=== PATIENT | male | born 1995 | race Caucasian/White ===

== ENCOUNTER 2016-10-16 16:30 | Emergency (ER) | payer OTHER ==
[2016-10-16 16:41] VITALS: BP 154/93
[2016-10-16] MEDS ORDERED: HYDROcod/ACETAM 5/325 MG TABLET PO STA (16:55)
--- NOTE | 2016-10-16 16:58 | ED Physician Documentation ---
PD HPI LOWER EXT INJURY - Stated complaint Stated Complaint: LT FT PAIN - Chief complaint Chief Complaint: Ext Problem - History obtained from History obtained from: Patient - History of Present Illness PD HPI LOW EXT INJURY LOCATION: Other (Hurt the lateral side of the left foot when he slipped off of a paddle board yesterday now cannot walk or bear weight. No other injuries. He is active duty in the [employer].) Review of Systems Constitutional: reports: Reviewed and negative Cardiac: reports: Reviewed and negative Respiratory: reports: Reviewed and negative PD PAST MEDICAL HISTORY - Present Medications Home Medications: Ambulatory Orders Medication Instructions Recorded Confirmed HYDROcod/ACETAM 5/325 [[place] 5/325] 1 - 2 ea PO Q6H PRN #10 tablet 10/16/16 - Allergies Allergies/Adverse Reactions: Allergies Allergy/AdvReac Type Severity Reaction Status Date / Time No Known Drug Allergies Allergy Verified 10/16/16 16:41 PD ED PE NORMAL - Vitals Vital signs reviewed: Yes - General General: Alert and oriented X 3, No acute distress - Extremities Extremities: Other (Left foot is tender over the mid and distal metatarsal, fifth. There is no tenderness to the proximal fifth metatarsal or ankle. No tenderness of the top of the foot or the medial foot. Good range of motion. Normal pedal pulses and sensation.) - Neuro Neuro: Alert and oriented X 3, Normal speech - Psych Psych: Normal mood, Normal affect Results - Vitals Vitals: Vital Signs - 24 hr 10/16/16 16:38 Temperature 36.9 C Heart Rate 90 Respiratory 16 Rate Blood Pressure 154/93 H O2 Saturation 96 Oxygen O2 Source Room air Departure - Departure Disposition: 01 Home, Self Care Clinical Impression: Sprain of left foot Qualifiers: Encounter type: initial encounter Qualified Code(s): S93.602A - Unspecified sprain of left foot, initial encounter Condition: Good Record reviewed to determine appropriate education?: Yes Instructions: ED Sprain Foot Prescriptions: HYDROcod/ACETAM 5/325 [[place] 5/325] 1 - 2 ea PO Q6H PRN #10 tablet PRN Reason: Pain Comments: [place] You may walk and bear weight on the left foot as tolerated because your x-rays normal. Do not drink or drive while taking narcotic pain medication. Note that many narcotic pain relievers also contain Tylenol/acetaminophen. Please ensure that your total dose of acetaminophen from all sources does not exceed 3 g (3000 mg) per day. You may get constipated while on this medication. Take a stool softener such as Colace twice a day while you are on it. Also add an enjn-npr-gmutfki laxative such as senna or MiraLAX on any day that you do not have a bowel movement. If you received a narcotic pain medication or sedative while in the emergency department, do not drive for the next 24 hours. Your blood pressure was elevated today on check into the emergency department. This does not mean that you have hypertension, it is a common phenomenon to come to the emergency department and have elevated blood pressure. I recommend that she see your primary care physician within the week to have it rechecked when you are feeling better.
--- NOTE | 2016-10-16 17:01 | XRAY Preliminary Report ---
Exam: XR Foot 3 View LT IMPRESSION: Normal foot radiography. [facility] SITE ID: [id number]
--- NOTE | 2016-10-16 17:03 | XRAY Report ---
EXAM: LEFT FOOT RADIOGRAPHY EXAM DATE: 10/16/2016 04:47 PM. CLINICAL HISTORY: Pain after slip and fall. COMPARISON: None. TECHNIQUE: 3 views. FINDINGS: Bones: Normal. No fractures or bone lesions. Joints: Normal. No subluxations. Soft Tissues: Normal. No soft tissue swelling. IMPRESSION: Normal foot radiography. [facility] Referring Provider Line: [phone] SITE ID: [id number]
[2016-10-16] MEDS ORDERED: HYDROcod/ACETAM 5/325 MG TABLET ONE (17:08)
== END 2016-10-16 17:10 | disposition home or self-care (01) ==
LOC: ED 16:30
DX: S93.602A Unspecified sprain of left foot, initial encounter (principal); W01.0XXA Fall on same level from slipping, tripping and stumbling without subsequent striking against object, initial encounter; Y92.89 Other specified places as the place of occurrence of the external cause; R03.0 Elevated blood-pressure reading, without diagnosis of hypertension
CPT/HCPCS: 73630; 99282; 99283; A9270

== ENCOUNTER 2018-12-12 21:57 | Emergency (ER) | payer OTHER ==
--- NOTE | 2018-12-12 22:38 | ED Physician Documentation ---
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 She was concerned about him and the MP showed up to his house after he arrived there and with the insistence of his command he was asked to come to the emergency department for evaluation. The patient denies any suicidal or homicidal ideation he does state that the argument they were having was related to some infidelity that happened while he was out on deployment. He does state that they have a polyamorous relationship and that he feels that his relationship with his is still intact and he feels he will build to work through this. He states that this is happened to him previously where his has called the [employer] when he was not talking to her on deployment. The patient states he has no prior history of mental illness and he denies any current illness. Review of Systems Constitutional: denies: Fever Eyes: denies: Decreased vision Ears: reports: Tinnitus/ringing. denies: Ear pain Nose: reports: Congestion. denies: Rhinorrhea / runny nose Throat: denies: Sore throat Cardiac: denies: Chest pain / pressure, Palpitations Respiratory: denies: Dyspnea, Cough GI: denies: Abdominal Pain, Abdominal Swelling : denies: Dysuria, Frequency Skin: denies: Rash Musculoskeletal: denies: Neck pain, Back pain Neurologic: denies: Generalized weakness, Focal weakness, Numbness Psychiatric: denies: Depressed, Suicidal, Homicidal, Hallucinations, Delusions, Anxiety, Insomnia PD PAST MEDICAL HISTORY - Past Surgical History Past Surgical History: No - Present Medications Home Medications: Ambulatory Orders Medication Instructions Recorded Confirmed HYDROcod/ACETAM 5/325 [[place] 5/325] 1 - 2 ea PO Q6H PRN #10 tablet 10/16/16 Azithromycin [Zithromax] 250 mg PO DAILY #6 tablet 12/12/18 - Allergies Allergies/Adverse Reactions: Allergies Allergy/AdvReac Type Severity Reaction Status Date / Time No Known Drug Allergies Allergy Verified 12/12/18 22:00 - Social History Does the pt smoke?: Yes Smoking Status: Current every day smoker Does the pt drink ETOH?: No Does the pt have substance abuse?: No - Immunizations Immunizations are current?: Yes PD ED PE NORMAL - Vitals Vital signs reviewed: Yes (hypertensive ) - General General: Alert and oriented X 3, No acute distress, Well developed/nourished - HEENT HEENT: Atraumatic, PERRL, EOMI, Other (mild erythema to the TM bilat worse on the left. ) - Neck Neck: Supple, no meningeal sign, No bony TTP - Cardiac Cardiac: RRR, No murmur - Respiratory Respiratory: No respiratory distress, Clear bilaterally - Abdomen Abdomen: Soft, Non tender - Back Back: No CVA TTP, No spinal TTP - Derm Derm: Normal color, Warm and dry, No rash - Extremities Extremities: No deformity, No tenderness to palpate, Normal ROM s pain, No edema, No calf tenderness / cord - Neuro Neuro: Alert and oriented X 3, mass spectroscopist 2-12 intact, No motor deficit, No sensory deficit, Normal speech Eye Opening: Spontaneous Motor: Obeys Commands Verbal: Oriented GCS Score: 15 - Psych Psych: Normal mood, Normal affect Results - Vitals Vitals: Vital Signs - 24 hr 12/12/18 12/12/18 22:00 22:47 Temperature 37.0 C Heart Rate 63 77 Respiratory 16 17 Rate Blood Pressure 146/109 H 138/93 H O2 Saturation 99 100 Oxygen O2 Source Room air PD MEDICAL DECISION MAKING - ED course Complexity details: re-evaluated patient, considered differential, d/w patient ED course: 23 y/o male evaluated by MP's has been asked by his command to be evaluated in the ED. I find nothing in the patients testimony to require evaluation by the protective services social worker or the DCR. I feel he is safe for discharge to home and the patient is thankful for this. He does have an incidental OM and he is given wait and see instructions. Departure - Departure Disposition: 01 Home, Self Care Clinical Impression: Domestic problems Otitis media Qualifiers: Otitis media type: suppurative Chronicity: acute Laterality: left Recurrence: non-recurrent Spontaneous tympanic membrane rupture: without spontaneous rupture Qualified Code(s): H66.002 - Acute suppurative otitis media without spontaneous rupture of ear drum, left ear Condition: Stable Instructions: ED Ear Infec Wait See Abx Tx Ch Follow-Up: [facility] [Provider Group] Prescriptions: Azithromycin [Zithromax] 250 mg PO DAILY #6 tablet Discharge Date/Time: 12/12/18 22:48
[2018-12-12 22:47] VITALS: BP 138/93
== END 2018-12-12 22:48 | disposition home or self-care (01) ==
LOC: ED 21:57
DX: Z63.0 Problems in relationship with spouse or partner (principal); H66.002 Acute suppurative otitis media without spontaneous rupture of ear drum, left ear; F17.200 Nicotine dependence, unspecified, uncomplicated
CPT/HCPCS: 99282; 99283

== ENCOUNTER 2019-01-11 15:29 | Inpatient (IN) | payer OTHER ==
--- NOTE | 2019-01-11 15:40 | ED Physician Documentation ---
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 Today he tried to kill himself, a variety of medications mostly codeine, acetaminophen and alcohol. Several shallow scratches on the left forearm that are self- inflicted. He is on Lexapro for about a week.) Review of Systems Ten Systems: 10 systems reviewed and negative Constitutional: reports: Reviewed and negative Cardiac: reports: Reviewed and negative Respiratory: reports: Reviewed and negative PD PAST MEDICAL HISTORY - Past Surgical History Past Surgical History: No - Present Medications Home Medications: Ambulatory Orders Medication Instructions Recorded Confirmed HYDROcod/ACETAM 5/325 [[place] 5/325] 1 - 2 ea PO Q6H PRN #10 tablet 10/16/16 Azithromycin [Zithromax] 250 mg PO DAILY #6 tablet 12/12/18 - Allergies Allergies/Adverse Reactions: Allergies Allergy/AdvReac Type Severity Reaction Status Date / Time No Known Drug Allergies Allergy Verified 01/11/19 15:38 - Social History Does the pt smoke?: Yes Smoking Status: Current every day smoker Does the pt drink ETOH?: No Does the pt have substance abuse?: No - Immunizations Immunizations are current?: Yes PD ED PE NORMAL - Vitals Vital signs reviewed: Yes - General General: Alert and oriented X 3, Other (Slightly intoxicated but cogent and coherent and cooperative) - HEENT HEENT: PERRL, EOMI - Neck Neck: Supple, no meningeal sign, No bony TTP - Cardiac Cardiac: RRR, No murmur - Respiratory Respiratory: No respiratory distress, Clear bilaterally - Abdomen Abdomen: Non tender - Back Back: No CVA TTP - Derm Derm: Normal color, Warm and dry - Extremities Extremities: Other (Several small scratches on the left forearm) - Neuro Neuro: Alert and oriented X 3, Normal speech Results - Vitals Vitals: Vital Signs - 24 hr 01/11/19 01/11/19 01/11/19 15:32 17:17 17:34 Temperature 36.7 C Heart Rate 86 90 89 Respiratory 18 14 18 Rate Blood Pressure 154/106 H O2 Saturation 99 95 95 Oxygen O2 Source Room air - EKG (time done) 1550 Rate: Rate (enter#) (96) Rhythm: NSR [place]: Normal Intervals: Normal ID QRS: Normal Ischemia: Normal ST segments Computer interpretation: Agree with computer 1807 Rate: Rate (enter#) (100) Rhythm: NSR [place]: Normal Intervals: Normal ID. No: Prolonged QT QRS: Normal Computer interpretation: Agree with computer - Labs Labs: Laboratory Tests 01/11/19 01/11/19 01/11/19 15:48 15:48 15:48 WBC 6.2 RBC 5.54 Hgb 17.5 Hct 49.5 MCV 89.4 MCH 31.6 H MCHC 35.4 RDW 11.8 L Plt Count 276 MPV 10.0 Neut # (Auto) 3.9 Lymph # (Auto) 1.6 [place] # (Auto) 0.6 Eos # (Auto) 0.0 Baso # (Auto) 0.0 Absolute Nucleated RBC 0.00 Nucleated RBC % 0.0 PT 12.6 INR 1.1 Sodium 139 Potassium 3.7 Chloride 101 Carbon Dioxide 23 Anion Gap 15.0 H BUN 10 Creatinine 0.9 Estimated GFR (MDRD) 105 Glucose 110 H Calcium 9.1 Total Bilirubin 1.0 AST 32 ALT 52 Alkaline Phosphatase 83 Total Protein 8.2 Albumin 4.8 Globulin 3.4 Albumin/Globulin Ratio 1.4 Lipase 24 TSH Urine Color Urine Clarity Urine pH Ur Specific [place] Urine Protein Urine Glucose (UA) Urine Ketones Urine Occult Blood Urine Nitrite Urine Bilirubin Urine Urobilinogen Ur Leukocyte Esterase Ur Microscopic Review Urine Culture Comments Salicylates < 6.0 Urine Opiates Screen Ur Oxycodone Screen Urine Methadone Screen Ur Propoxyphene Screen Acetaminophen 333 H* Ur Barbiturates Screen Ur Tricyclics Screen Ur Phencyclidine Scrn Ur Amphetamine Screen U Methamphetamines Scrn U Benzodiazepines Scrn Urine Cocaine Screen U Cannabinoids Screen Ethyl Alcohol 153.3 01/11/19 01/11/19 01/11/19 15:48 16:20 17:59 WBC RBC Hgb Hct MCV MCH MCHC RDW Plt Count MPV Neut # (Auto) Lymph # (Auto) [place] # (Auto) Eos # (Auto) Baso # (Auto) Absolute Nucleated RBC Nucleated RBC % PT INR Sodium Potassium Chloride Carbon Dioxide Anion Gap BUN Creatinine Estimated GFR (MDRD) Glucose Calcium Total Bilirubin AST ALT Alkaline Phosphatase Total Protein Albumin Globulin Albumin/Globulin Ratio Lipase TSH 0.93 Urine Color YELLOW Urine Clarity CLEAR Urine pH 6.0 Ur Specific [place] 1.020 Urine Protein NEGATIVE Urine Glucose (UA) NEGATIVE Urine Ketones NEGATIVE Urine Occult Blood NEGATIVE Urine Nitrite NEGATIVE Urine Bilirubin NEGATIVE Urine Urobilinogen 0.2 (NORMAL) Ur Leukocyte Esterase NEGATIVE Ur Microscopic Review NOT INDICATED Urine Culture Comments NOT INDICATED Salicylates Urine Opiates Screen POSITIVE H Ur Oxycodone Screen NEGATIVE Urine Methadone Screen NEGATIVE Ur Propoxyphene Screen NEGATIVE Acetaminophen 365 H* Ur Barbiturates Screen NEGATIVE Ur Tricyclics Screen NEGATIVE Ur Phencyclidine Scrn NEGATIVE Ur Amphetamine Screen NEGATIVE U Methamphetamines Scrn NEGATIVE U Benzodiazepines Scrn NEGATIVE Urine Cocaine Screen NEGATIVE U Cannabinoids Screen NEGATIVE Ethyl Alcohol PD MEDICAL DECISION MAKING - ED course ED course: 23-year-old gentleman presents with multidrug overdose. Found to have a toxic Tylenol level. The 2 are level was quite high and poison control recommended starting N-acetylcysteine at that juncture which was ordered. The 4-hour level was also above the toxic threshold so will be admitted for the full treatment. Book with Dr. Ramírez for admission at 7:35 PM. - Consults Consults: Discussed case with (Dr Arteaga, his flight surgeon, he is available at [phone]) Departure - Departure Disposition: ED Place in Observation Clinical Impression: Suicidal ideation Alcoholic intoxication Qualifiers: Complication of substance-induced condition: uncomplicated Qualified Code(s): F10.920 - Alcohol use, unspecified with intoxication, uncomplicated Tylenol overdose Qualifiers: Encounter type: initial encounter Injury intent: intentional self-harm Qualified Code(s): T39.1X2A - Poisoning by 4-Aminophenol derivatives, intentional self-harm, initial encounter Condition: Serious
[2019-01-11 15:54] LABS: BASOPHILS % (AUTO) 0.6 %; EOSINOPHILS % (AUTO) 0.5 %; HGB - HEMOGLOBIN 17.5 g/dL (14.0-18.0); LYMPHOCYTES # (AUTO) 1.6 10^3/uL (1.5-3.5); LYMPHOCYTES % (AUTO) 25.6 %; MEAN CORPUSCULAR HEMOGLOBIN 31.6 pg (27.0-31.0); MEAN CORPUSCULAR HGB CONC 35.4 g/dL (32.0-36.0); MEAN CORPUSCULAR VOLUME 89.4 fL (80.0-94.0); MONOCYTES # (AUTO) 0.6 10^3/uL (0.0-1.0); MONOCYTES % (AUTO) 9.6 %; NEUTROPHILS # (AUTO) 3.9 10^3/uL (1.5-6.6); NEUTROPHILS % (AUTO) 63.4 %; PLT - PLATELET COUNT 276 10^3/uL (130-450); RED BLOOD COUNT 5.54 10^6/uL (4.70-6.10); RED CELL DISTRIBUTION WIDTH 11.8 % (12.0-15.0); WHITE BLOOD COUNT 6.2 x10^3/uL (4.8-10.8)
[2019-01-11 16:09] LABS: ALBUMIN 4.8 g/dL (3.2-5.5); ALBUMIN/GLOBULIN RATIO 1.4 (1.0-2.2); ALKALINE PHOSPHATASE 83 IU/L (42-121); ALT ALANINE AMINOTRANSFERASE 52 IU/L (10-60); AST ASPARTATE AMINOTRANSFERASE 32 IU/L (10-42); BUN - BLOOD UREA NITROGEN 10 mg/dL (6-20); CALCIUM 9.1 mg/dL (8.5-10.3); CARBON DIOXIDE - CO2 23 mmol/L (21-32); CHLORIDE 101 mmol/L (101-111); CREATININE 0.9 mg/dL (0.6-1.2); GFR - MDRD 105 (>89); GLUCOSE 110 mg/dL (70-100); INR 1.1 (0.8-1.2); LIPASE 24 U/L (22-51); PT - PROTHROMBIN TIME 12.6 secs (9.9-12.6); SODIUM 139 mmol/L (135-145); TOTAL PROTEIN 8.2 g/dL (6.7-8.2)
[2019-01-11 16:29] LABS: MUDS CUTOFF CONCENTRATIONS CUTOFF CONC BELOW:
[2019-01-11 16:31] LABS: BILIRUBIN,URINE NEGATIVE (NEGATIVE); GLUCOSE, URINE (UA) NEGATIVE (NEGATIVE); KETONES,URINE (UA) NEGATIVE (NEGATIVE); LEUKOCYTE ESTERASE, URINE NEGATIVE (NEGATIVE); NITRITE,URINE NEGATIVE (NEGATIVE); OCCULT BLOOD,URINE NEGATIVE (NEGATIVE); PROTEIN,URINE NEGATIVE (NEGATIVE); UROBILINOGEN,URINE 0.2 (NORMAL) E.U./dL (NORMAL)
[2019-01-11 16:35] LABS: CLARITY,URINE CLEAR (CLEAR)
[2019-01-11 16:43] LABS: AMPHETAMINE SCREEN,URINE NEGATIVE (NEGATIVE); BENZODIAZEPINES SCREEN, URINE NEGATIVE (NEGATIVE); COCAINE SCREEN URINE NEGATIVE (NEGATIVE); METHADONE SCREEN, URINE NEGATIVE (NEGATIVE); METHAMPHETAMINES SCREEN, URINE NEGATIVE (NEGATIVE); OPIATE SCREEN, URINE POSITIVE (NEGATIVE); OXYCODONE SCREEN, URINE NEGATIVE (NEGATIVE); PROPOXYPHENE SCREEN, URINE NEGATIVE (NEGATIVE); TRICYCLIC ANTIDEPRESSANT,URINE NEGATIVE (NEGATIVE)
[2019-01-11 16:45] LABS: SALICYLATE < 6.0 mg/dL
[2019-01-11 16:53] LABS: ACETAMINOPHEN 333 ug/mL (10-30)
[2019-01-11] MEDS ORDERED: ACETYLCYSTEINE 15,000 MG in DEXTROSE 5% 200 ML IV STA (17:17)
[2019-01-11] MEDS: PROMETHAZINE 25 MG/1 ML VIAL IM STA ×2 (17:49→18:31)
[2019-01-11] MEDS ORDERED: ACETYLCYSTEINE 10,000 MG in DEXTROSE 5% 1,000 ML IV ONE (18:30)
[2019-01-11] MEDS ORDERED: ACETYLCYSTEINE 5,000 MG in DEXTROSE 5% 500 ML IV ONE (18:30)
[2019-01-11] MEDS ORDERED: ONDANSETRON 4 MG/2 ML VIAL IVP PRN (19:36)
[2019-01-11] MEDS ORDERED: SODIUM CHLORIDE FLUSH 0.9% 10 ML SYRINGE IVP PRN (19:36)
--- NOTE | 2019-01-11 19:46 | HISTORY & PHYSICAL EXAMINATION ---
Chief Complaint - Chief Complaint Chief Complaint: intentional tylenol ovedose History of Present Illness - Admitted From Admitted From:: [facility] - History Obtained From Records Reviewed: yes History obtained from: patient, ED physician, patient's commanding officer Exam Limitations: patient is evasive and uncooperative - History of Present Illness HPI Comment/Other: Patient is a 23 y/o male who in the [employer] and presents after intentional ingestion of a significant/large unspecified amount of lexapro and tylenol with codeine. He is very evasive and would not shed light on the situation surrounding the incident or his presentation. As a result there is no good estimate of the time of ingestion or amount. In the ED he was found to have a tylenol level of 333 and 365 upon recheck a few hours later. He also had an al cohol level of 153. At bedside he is very nauseous and vomiting. He appears drowsy but can readily r espond to questions. He denies chest pain, dyspnea, abdominal pain, fever or chills. He has very superficial cuts on his left for arm. He responds with "I don't remember" to any questions asked. He is being admitted for further treatment. On further investigation, it is reported by his commanding officer that her consumed a significant amount of alcohol at home, got drunk and got into an argument with his . Then he texted a friend that he had explosives in his house which were set up to go off. This triggered [employer] involvement. He was initially handcuffed and his phone was confiscated as part of investigation into the claim. He was subsequently brought to the ED where the work up resulted as above. It is reported that he had expressed suicidal ideation. History - Past Medical History Psych: reports: Depression MRSA Hx?: No - Past Surgical History Other past surgical history: He denied any surgical history - Family & Social History Family History Comment/Other: He denied any significant family history of medical conditions. Living arrangement: At home Living Situation: With spouse/s.o. Social History Notes: He reports alcohol consumption but would not specify how much. He denies tobacco or illicit drug use. He is in the [employer] - POLST Patient has POLST: No POLST Status: Full Code Meds/Allgy - Home Medications Home Medications: Ambulatory Orders Medication Instructions Recorded Confirmed HYDROcod/ACETAM 5/325 [[place] 5/325] 1 - 2 ea PO Q6H PRN #10 tablet 10/16/16 Azithromycin [Zithromax] 250 mg PO DAILY #6 tablet 12/12/18 - Allergies Allergies/Adverse Reactions: Allergies Allergy/AdvReac Type Severity Reaction Status Date / Time No Known Drug Allergies Allergy Verified 01/11/19 15:38 Review of Systems - Constitutional Constitutional: denies: Fever, Chills - Eyes Eyes: denies: Pain, Blurred vision, Dipolpia - Ears, Nose & Throat Ears, Nose & Throat: denies: Ear pain, Tinnitus, Vertigo, Sore throat - Cardiovascular Cariovascular: denies: Irregular heart rate, Palpitations, Chest pain, Edema, Lightheadedness, Syncope - Respiratory Respiratory: denies: Cough, Wheezing, Snoring, Hemoptysis, Orthopnea, SOB at rest, SOB with exertion - Gastrointestinal Gastrointestinal: reports: Nausea, Vomiting. denies: Abdominal pain, Abdominal distention, Diarrhea - Genitourinary Genitourinary: denies: Dysuria, Frequency, Urgency, Hematuria - Musculoskeletal Musculoskeletal: denies: Muscle pain, Back pain, Muscle aches - Integumentary Integumentary: denies: Rash, Pruritis, Lesions - Neurological Neurological: denies: General weakness, Focal weakness, Headache, Dizziness - Psychiatric Psychiatric: reports: Depression, Suicidal - Endocrine Endocrine: denies: Polyuria, Polydypsia - Hematologic/Lymphatic Hematologic/Lymphatic: denies: Anemia, Bruising, Petechiae Prior Level of Functionality: Patient is independent of activities of daily living Exam - Vital Signs Vital Signs: Vital Signs x48h Temp Pulse Resp BP Pulse Ox 01/11/19 17:34 89 18 95 01/11/19 17:17 90 14 95 01/11/19 15:32 36.7 C 86 18 154/106 H 99 - Physical Exam General Appearance: positive: No acute distress, Alert Eyes Bilateral: positive: Normal inspection, PERRL, EOMI ENT: positive: ENT inspection nml, No signs of dehydration Neck: positive: Nml inspection, No JVD, Trachea midline Respiratory: positive: Chest non-tender, No respiratory distress, Breath sounds nml, Wheezes, Rales, Rhonchi Cardiovascular: positive: Regular rate & rhythm Abdomen: positive: Non-tender, No organomegaly, Nml bowel sounds, No distention Back: positive: Nml inspection Skin: positive: Color nml, No rash, Warm, Dry Extremities: positive: Non-tender, Full ROM, Nml appearance, No pedal edema Neurologic/Psychiatric: positive: Oriented x3, CN's nml (2-12), Motor nml, Depressed mood/affect Conclusion/Plan - Problem List (1) Tylenol overdose Conclusion/Plan: Intentional Patient also took a significant amount of lexapro EKG showed normal sinus rhythm Patient on N-acetylcysteine drip. Will monitor tylenol level and CMP Qualifiers: Encounter type: initial encounter Injury intent: intentional self-harm Qualified Code(s): T39.1X2A - Poisoning by 4-Aminophenol derivatives, intentional self-harm, initial encounter (2) Suicidal ideation Conclusion/Plan: On 1:1 observation Social work consulted. Patient will subsequently need transfer to Inpatient psych (?[place]) (3) Alcoholic intoxication Conclusion/Plan: Will monitor. Qualifiers: Complication of substance-induced condition: uncomplicated Qualified Code(s ): F10.920 - Alcohol use, unspecified with intoxication, uncomplicated - Lab Results Fish Bones: 01/11/19 15:48 01/11/19 22:26 Core Measures - Anticipated LOS I expect patient to be DC'd or transferred within 96 hours.: Yes - DVT/VTE - Prophylaxis VTE/DVT Device ordered at admit?: Yes
[2019-01-11] MEDS: SODIUM CHLORIDE 0.9% 1,000 ML IV SCH (20:58)
[2019-01-11 22:52] LABS: CALCIUM 8.3 mg/dL (8.5-10.3); CREATININE 0.9 mg/dL (0.6-1.2)
[2019-01-12] MEDS: SODIUM CHLORIDE FLUSH 0.9% 10 ML SYRINGE IVP SCH ×3 (01:02→17:00)
[2019-01-12] MEDS: SODIUM CHLORIDE 0.9% 1,000 ML IV SCH ×2 (04:57→12:30)
[2019-01-12 06:17] LABS: BASOPHILS # (AUTO) 0.1 10^3/uL (0.0-0.1); BASOPHILS % (AUTO) 0.5 %; EOSINOPHILS % (AUTO) 0.1 %; LYMPHOCYTES # (AUTO) 1.8 10^3/uL (1.5-3.5); LYMPHOCYTES % (AUTO) 18.8 %; MEAN CORPUSCULAR HEMOGLOBIN 31.4 pg (27.0-31.0); MEAN CORPUSCULAR HGB CONC 34.2 g/dL (32.0-36.0); MEAN CORPUSCULAR VOLUME 91.8 fL (80.0-94.0); MEAN PLATELET VOLUME 10.1 fL (7.4-11.4); MONOCYTES # (AUTO) 0.7 10^3/uL (0.0-1.0); MONOCYTES % (AUTO) 7.7 %; NEUTROPHILS # (AUTO) 6.9 10^3/uL (1.5-6.6); NEUTROPHILS % (AUTO) 72.4 %; PLT - PLATELET COUNT 240 10^3/uL (130-450); RED BLOOD COUNT 4.77 10^6/uL (4.70-6.10); RED CELL DISTRIBUTION WIDTH 11.9 % (12.0-15.0); WHITE BLOOD COUNT 9.5 x10^3/uL (4.8-10.8)
[2019-01-12 06:26] LABS: ALBUMIN 3.8 g/dL (3.2-5.5); ALBUMIN/GLOBULIN RATIO 1.2 (1.0-2.2); BILIRUBIN,TOTAL 0.8 mg/dL (0.2-1.0); CALCIUM 8.4 mg/dL (8.5-10.3); TOTAL PROTEIN 6.9 g/dL (6.7-8.2)
[2019-01-12 15:40] LABS: INR 1.3 (0.8-1.2); PT - PROTHROMBIN TIME 14.1 secs (9.9-12.6)
[2019-01-12 15:56] LABS: ALBUMIN 3.7 g/dL (3.2-5.5); BILIRUBIN,DIRECT 0.1 mg/dL (0.1-0.5); TOTAL PROTEIN 6.8 g/dL (6.7-8.2)
--- NOTE | 2019-01-12 16:16 | PROVIDER PROGRESS NOTE ---
Assessment/Plan - Problem List (1) Tylenol overdose Qualifiers: Encounter type: subsequent encounter Injury intent: intentional self-harm Qualified Code(s): T39.1X2D - Poisoning by 4-Aminophenol derivatives, intentional self-harm, subsequent encounter Assessment/Plan: Poison Control was involved. Tylenol levels are being followed. He is on Mucomyst. Continue with gentle hydration. Follow liver tests and INR q6h. (2) Suicidal ideation Assessment/Plan: He remains under suicide precautions here. When medically clear, probably tomorrow, will order Social Work consult for mental health eval and probable transfer under the care of psychiatry with the [facility] (3) Alcoholic intoxication Qualifiers: Complication of substance-induced condition: uncomplicated Qualified Code(s): F10.920 - Alcohol use, unspecified with intoxication, uncomplicated Assessment/Plan: He does not appear intoxicated. Will order a CIWA protocol in case of alcohol withdrawal in the next day (4) Domestic problems Assessment/Plan: He stated that he has explosives that are set up to go off, yesterday. His phone was confiscated. Remain under 1:1 observation - Current Meds Current Meds: Current Medications Generic Name Dose Route Start Last Admin Trade Name Freq PRN Reason Stop Dose Admin Sodium Chloride 1,000 mls @ 125 mls/hr 01/11/19 20:00 01/12/19 16:00 Normal Saline 0.9% IV 125 mls/hr .Q8H ROWAN Infusion Ondansetron HCl 4 mg 01/11/19 19:36 01/11/19 20:58 Zofran Inj IVP 4 mg Q6HR PRN Administration Nausea / Vomiting Sodium Chloride 10 ml 01/11/19 19:36 01/11/19 20:58 Normal Saline Flush 0.9% IVP 10 ml PRN PRN Administration NEEDED PER PROVIDER ORDERS Sodium Chloride 10 ml 01/12/19 01:00 01/12/19 09:00 Normal Saline Flush 0.9% IVP 10 ml 0100,0900,1700 ROWAN Administration - Lab Result Fish Bone Diagrams: 01/12/19 06:00 01/12/19 06:00 Subjective - Subjective Patient Reports: Feeling Better Objective Vital Signs: Vital Signs - 24 hr 01/11/19 01/11/19 01/11/19 17:17 17:34 20:33 Temperature 36.7 C Heart Rate 90 89 Heart Rate [ 97 Brachial] Respiratory 14 18 20 Rate Blood Pressure 127/84 H [Left Brachial artery] O2 Saturation 95 95 98 01/11/19 01/11/19 01/12/19 21:00 23:45 04:30 Temperature 36.7 C 36.7 C 37.4 C Heart Rate 97 Heart Rate [ 94 82 Brachial] Respiratory 20 16 18 Rate Blood Pressure 145/79 H 137/91 H [Left Brachial artery] O2 Saturation 98 96 99 01/12/19 01/12/19 09:00 13:00 Temperature 37.2 C 36.9 C Heart Rate Heart Rate [ 64 76 Brachial] Respiratory 14 14 Rate Blood Pressure 143/82 H 154/88 H [Left Brachial artery] O2 Saturation 98 97 Oxygen O2 Source Room air I&O (Last 24 Hrs): Intake and Output Totals x24h 01/10/19 01/11/19 01/12/19 23:59 23:59 23:59 Intake Total 649.861 6716.667 Output Total 50 2700 Balance 243.181 5554.667 General: Alert HEENT: Mucous membr. moist/pink Neck: Supple Neuro: Non Focal Cardiovascular: Regular rate Respiratory: No respiratory distress Abdomen: Soft Extremities: No edema, Other (Many tattoos) - Results Results: Laboratory Results WBC 9.5 x10^3/uL (4.8-10.8) 01/12/19 06:00 RBC 4.77 10^6/uL (4.70-6.10) 01/12/19 06:00 Hgb 15.0 g/dL (14.0-18.0) 01/12/19 06:00 Hct 43.8 % (42.0-52.0) 01/12/19 06:00 MCV 91.8 fL (80.0-94.0) 01/12/19 06:00 MCH 31.4 pg (27.0-31.0) H 01/12/19 06:00 MCHC 34.2 g/dL (32.0-36.0) 01/12/19 06:00 RDW 11.9 % (12.0-15.0) L 01/12/19 06:00 Plt Count 240 10^3/uL (130-450) 01/12/19 06:00 MPV 10.1 fL (7.4-11.4) 01/12/19 06:00 Neut # (Auto) 6.9 10^3/uL (1.5-6.6) H 01/12/19 06:00 Lymph # (Auto) 1.8 10^3/uL (1.5-3.5) 01/12/19 06:00 [place] # (Auto) 0.7 10^3/uL (0.0-1.0) 01/12/19 06:00 Eos # (Auto) 0.0 10^3/uL (0.0-0.7) 01/12/19 06:00 Baso # (Auto) 0.1 10^3/uL (0.0-0.1) 01/12/19 06:00 Absolute Nucleated RBC 0.00 x10^3/uL 01/12/19 06:00 Nucleated RBC % 0.0 /100WBC 01/12/19 06:00 PT 14.1 secs (9.9-12.6) H 01/12/19 15:30 INR 1.3 (0.8-1.2) H 01/12/19 15:30 Sodium 139 mmol/L (135-145) 01/12/19 06:00 Potassium 3.5 mmol/L (3.5-5.0) 01/12/19 06:00 Chloride 103 mmol/L (101-111) 01/12/19 06:00 Carbon Dioxide 27 mmol/L (21-32) 01/12/19 06:00 Anion Gap 9.0 (6-13) 01/12/19 06:00 BUN 9 mg/dL (6-20) 01/12/19 06:00 Creatinine 1.0 mg/dL (0.6-1.2) 01/12/19 06:00 Estimated GFR (MDRD) 93 (>89) 01/12/19 06:00 Glucose 103 mg/dL (70-100) H 01/12/19 06:00 Calcium 8.4 mg/dL (8.5-10.3) L 01/12/19 06:00 Magnesium 2.0 mg/dL (1.7-2.8) 01/11/19 22:26 Total Bilirubin 1.0 mg/dL (0.2-1.0) 01/12/19 15:30 Direct Bilirubin 0.1 mg/dL (0.1-0.5) 01/12/19 15:30 AST 29 IU/L (10-42) 01/12/19 15:30 ALT 39 IU/L (10-60) 01/12/19 15:30 Alkaline Phosphatase 61 IU/L (42-121) 01/12/19 15:30 Total Protein 6.8 g/dL (6.7-8.2) 01/12/19 15:30 Albumin 3.7 g/dL (3.2-5.5) 01/12/19 15:30 Globulin 3.1 g/dL (2.1-4.2) 01/12/19 15:30 Albumin/Globulin Ratio 1.2 (1.0-2.2) 01/12/19 06:00 Lipase 24 U/L (22-51) 01/11/19 15:48 TSH 0.93 uIU/mL (0.34-5.60) 01/11/19 15:48 Urine Color YELLOW 01/11/19 16:20 Urine Clarity CLEAR (CLEAR) 01/11/19 16:20 Urine pH 6.0 PH (5.0-7.5) 01/11/19 16:20 Ur Specific [place] 1.020 (1.002-1.030) 01/11/19 16:20 Urine Protein NEGATIVE mg/dL (NEGATIVE) 01/11/19 16:20 Urine Glucose (UA) NEGATIVE mg/dL (NEGATIVE) 01/11/19 16:20 Urine Ketones NEGATIVE mg/dL (NEGATIVE) 01/11/19 16:20 Urine Occult Blood NEGATIVE (NEGATIVE) 01/11/19 16:20 Urine Nitrite NEGATIVE (NEGATIVE) 01/11/19 16:20 Urine Bilirubin NEGATIVE (NEGATIVE) 01/11/19 16:20 Urine Urobilinogen 0.2 (NORMAL) E.U./dL (NORMAL) 01/11/19 16:20 Ur Leukocyte Esterase NEGATIVE (NEGATIVE) 01/11/19 16:20 Ur Microscopic Review NOT INDICATED 01/11/19 16:20 Urine Culture Comments NOT INDICATED 01/11/19 16:20 Salicylates < 6.0 mg/dL 01/11/19 15:48 Urine Opiates Screen POSITIVE (NEGATIVE) H 01/11/19 16:20 Ur Oxycodone Screen NEGATIVE (NEGATIVE) 01/11/19 16:20 Urine Methadone Screen NEGATIVE (NEGATIVE) 01/11/19 16:20 Ur Propoxyphene Screen NEGATIVE (NEGATIVE) 01/11/19 16:20 Acetaminophen < 10 ug/mL (10-30) L 01/12/19 15:30 Ur Barbiturates Screen NEGATIVE (NEGATIVE) 01/11/19 16:20 Ur Tricyclics Screen NEGATIVE (NEGATIVE) 01/11/19 16:20 Ur Phencyclidine Scrn NEGATIVE (NEGATIVE) 01/11/19 16:20 Ur Amphetamine Screen NEGATIVE (NEGATIVE) 01/11/19 16:20 U Methamphetamines Scrn NEGATIVE (NEGATIVE) 01/11/19 16:20 U Benzodiazepines Scrn NEGATIVE (NEGATIVE) 01/11/19 16:20 Urine Cocaine Screen NEGATIVE (NEGATIVE) 01/11/19 16:20 U Cannabinoids Screen NEGATIVE (NEGATIVE) 01/11/19 16:20 Ethyl Alcohol 153.3 mg/dL 01/11/19 15:48
[2019-01-12] MEDS ORDERED: LORazepam 2 MG/ML VIAL IVP PRN (16:46)
[2019-01-12] MEDS ORDERED: SODIUM CHLORIDE 0.9% 1,000 ML IV SCH (16:46)
[2019-01-13] MEDS: SODIUM CHLORIDE FLUSH 0.9% 10 ML SYRINGE IVP SCH ×2 (03:26→08:36)
[2019-01-13 06:25] LABS: BASOPHILS % (AUTO) 0.5 %; EOSINOPHILS # (AUTO) 0.1 10^3/uL (0.0-0.7); EOSINOPHILS % (AUTO) 1.8 %; LYMPHOCYTES # (AUTO) 1.5 10^3/uL (1.5-3.5); LYMPHOCYTES % (AUTO) 24.2 %; MEAN CORPUSCULAR HEMOGLOBIN 31.6 pg (27.0-31.0); MEAN CORPUSCULAR HGB CONC 34.2 g/dL (32.0-36.0); MEAN CORPUSCULAR VOLUME 92.4 fL (80.0-94.0); MEAN PLATELET VOLUME 9.7 fL (7.4-11.4); MONOCYTES # (AUTO) 0.4 10^3/uL (0.0-1.0); MONOCYTES % (AUTO) 7.2 %; NEUTROPHILS # (AUTO) 4.1 10^3/uL (1.5-6.6); NEUTROPHILS % (AUTO) 66.1 %; PLT - PLATELET COUNT 204 10^3/uL (130-450); RED BLOOD COUNT 4.74 10^6/uL (4.70-6.10); RED CELL DISTRIBUTION WIDTH 11.7 % (12.0-15.0); WHITE BLOOD COUNT 6.2 x10^3/uL (4.8-10.8)
[2019-01-13 06:36] LABS: ACETAMINOPHEN < 10 ug/mL (10-30); ALBUMIN 3.8 g/dL (3.2-5.5); ALBUMIN/GLOBULIN RATIO 1.3 (1.0-2.2); ALKALINE PHOSPHATASE 60 IU/L (42-121); ALT ALANINE AMINOTRANSFERASE 37 IU/L (10-60); AST ASPARTATE AMINOTRANSFERASE 23 IU/L (10-42); BUN - BLOOD UREA NITROGEN 7 mg/dL (6-20); CALCIUM 8.6 mg/dL (8.5-10.3); CARBON DIOXIDE - CO2 28 mmol/L (21-32); CHLORIDE 106 mmol/L (101-111); CREATININE 0.8 mg/dL (0.6-1.2); GFR - MDRD 120 (>89); GLUCOSE 102 mg/dL (70-100); SODIUM 140 mmol/L (135-145); TOTAL PROTEIN 6.7 g/dL (6.7-8.2)
--- NOTE | 2019-01-13 18:09 | PROVIDER PROGRESS NOTE ---
Assessment/Plan - Problem List (1) Suicidal ideation Assessment/Plan: Cleared medically to be seen by for mental health eval. He is depressed and had suicidal thoughts daily, per SW He needs inpatient psych. The DCR was called and came in. The patient is willing to be transferred to inpatient psych, therefore he will be a voluntary inpt admission. Transfer [facility] to [facility] or [facility], awaiting reviews and acceptance. Remains 1:1 observation. (2) Alcoholic intoxication Qualifiers: Complication of substance-induced condition: uncomplicated Qualified Code(s): F10.920 - Alcohol use, unspecified with intoxication, uncomplicated Assessment/Plan: Resolved (3) Domestic problems Assessment/Plan: Marriage problems, per SW (4) Tylenol overdose Qualifiers: Encounter type: subsequent encounter Injury intent: intentional self-harm Qualified Code(s): T39.1X2D - Poisoning by 4-Aminophenol derivatives, intentional self-harm, subsequent encounter Assessment/Plan: Resolved - Lab Result Fish Bone Diagrams: 01/13/19 06:17 01/13/19 06:17 - Additional Planning My Orders: My Active Orders 01/13/19 10:09 Telemetry-Discontinue [RC] .ONCE Subjective - Subjective Patient Reports: No Complaints Objective Vital Signs: Vital Signs - 24 hr 01/12/19 01/13/19 01/13/19 19:20 00:00 03:23 Temperature 37 C 36.5 C 36.3 C L Heart Rate [ 83 71 62 Brachial] Respiratory 16 18 16 Rate Blood Pressure 113/72 117/79 113/77 [Left Brachial artery] O2 Saturation 97 97 98 01/13/19 01/13/19 08:28 16:00 Temperature 36.9 C 37.1 C Heart Rate [ 69 89 Brachial] Respiratory 16 18 Rate Blood Pressure 121/75 132/68 H [Left Brachial artery] O2 Saturation 100 98 Oxygen O2 Source Room air I&O (Last 24 Hrs): Intake and Output Totals x24h 01/11/19 01/12/19 01/13/19 23:59 23:59 23:59 Intake Total 267.729 4072.750 1121 Output Total 50 3825 1200 Balance 780.053 7614.750 -79 General: Alert, Oriented x3 - Results Results: Laboratory Results WBC 6.2 x10^3/uL (4.8-10.8) 01/13/19 06:17 RBC 4.74 10^6/uL (4.70-6.10) 01/13/19 06:17 Hgb 15.0 g/dL (14.0-18.0) 01/13/19 06:17 Hct 43.8 % (42.0-52.0) 01/13/19 06:17 MCV 92.4 fL (80.0-94.0) 01/13/19 06:17 MCH 31.6 pg (27.0-31.0) H 01/13/19 06:17 MCHC 34.2 g/dL (32.0-36.0) 01/13/19 06:17 RDW 11.7 % (12.0-15.0) L 01/13/19 06:17 Plt Count 204 10^3/uL (130-450) 01/13/19 06:17 MPV 9.7 fL (7.4-11.4) 01/13/19 06:17 Neut # (Auto) 4.1 10^3/uL (1.5-6.6) 01/13/19 06:17 Lymph # (Auto) 1.5 10^3/uL (1.5-3.5) 01/13/19 06:17 [place] # (Auto) 0.4 10^3/uL (0.0-1.0) 01/13/19 06:17 Eos # (Auto) 0.1 10^3/uL (0.0-0.7) 01/13/19 06:17 Baso # (Auto) 0.0 10^3/uL (0.0-0.1) 01/13/19 06:17 Absolute Nucleated RBC 0.00 x10^3/uL 01/13/19 06:17 Nucleated RBC % 0.0 /100WBC 01/13/19 06:17 PT 14.1 secs (9.9-12.6) H 01/12/19 15:30 INR 1.3 (0.8-1.2) H 01/12/19 15:30 Whole Blood INR 1.0 (0.8-1.2) 01/13/19 06:30 Sodium 140 mmol/L (135-145) 01/13/19 06:17 Potassium 3.8 mmol/L (3.5-5.0) 01/13/19 06:17 Chloride 106 mmol/L (101-111) 01/13/19 06:17 Carbon Dioxide 28 mmol/L (21-32) 01/13/19 06:17 Anion Gap 6.0 (6-13) 01/13/19 06:17 BUN 7 mg/dL (6-20) 01/13/19 06:17 Creatinine 0.8 mg/dL (0.6-1.2) 01/13/19 06:17 Estimated GFR (MDRD) 120 (>89) 01/13/19 06:17 Glucose 102 mg/dL (70-100) H 01/13/19 06:17 Calcium 8.6 mg/dL (8.5-10.3) 01/13/19 06:17 Magnesium 2.0 mg/dL (1.7-2.8) 01/11/19 22:26 Total Bilirubin 1.0 mg/dL (0.2-1.0) 01/13/19 06:17 Direct Bilirubin 0.1 mg/dL (0.1-0.5) 01/12/19 15:30 AST 23 IU/L (10-42) 01/13/19 06:17 ALT 37 IU/L (10-60) 01/13/19 06:17 Alkaline Phosphatase 60 IU/L (42-121) 01/13/19 06:17 Total Protein 6.7 g/dL (6.7-8.2) 01/13/19 06:17 Albumin 3.8 g/dL (3.2-5.5) 01/13/19 06:17 Globulin 2.9 g/dL (2.1-4.2) 01/13/19 06:17 Albumin/Globulin Ratio 1.3 (1.0-2.2) 01/13/19 06:17 Lipase 24 U/L (22-51) 01/11/19 15:48 TSH 0.93 uIU/mL (0.34-5.60) 01/11/19 15:48 Urine Color YELLOW 01/11/19 16:20 Urine Clarity CLEAR (CLEAR) 01/11/19 16:20 Urine pH 6.0 PH (5.0-7.5) 01/11/19 16:20 Ur Specific [place] 1.020 (1.002-1.030) 01/11/19 16:20 Urine Protein NEGATIVE mg/dL (NEGATIVE) 01/11/19 16:20 Urine Glucose (UA) NEGATIVE mg/dL (NEGATIVE) 01/11/19 16:20 Urine Ketones NEGATIVE mg/dL (NEGATIVE) 01/11/19 16:20 Urine Occult Blood NEGATIVE (NEGATIVE) 01/11/19 16:20 Urine Nitrite NEGATIVE (NEGATIVE) 01/11/19 16:20 Urine Bilirubin NEGATIVE (NEGATIVE) 01/11/19 16:20 Urine Urobilinogen 0.2 (NORMAL) E.U./dL (NORMAL) 01/11/19 16:20 Ur Leukocyte Esterase NEGATIVE (NEGATIVE) 01/11/19 16:20 Ur Microscopic Review NOT INDICATED 01/11/19 16:20 Urine Culture Comments NOT INDICATED 01/11/19 16:20 Salicylates < 6.0 mg/dL 01/11/19 15:48 Urine Opiates Screen POSITIVE (NEGATIVE) H 01/11/19 16:20 Ur Oxycodone Screen NEGATIVE (NEGATIVE) 01/11/19 16:20 Urine Methadone Screen NEGATIVE (NEGATIVE) 01/11/19 16:20 Ur Propoxyphene Screen NEGATIVE (NEGATIVE) 01/11/19 16:20 Acetaminophen < 10 ug/mL (10-30) L 01/13/19 06:17 Ur Barbiturates Screen NEGATIVE (NEGATIVE) 01/11/19 16:20 Ur Tricyclics Screen NEGATIVE (NEGATIVE) 01/11/19 16:20 Ur Phencyclidine Scrn NEGATIVE (NEGATIVE) 01/11/19 16:20 Ur Amphetamine Screen NEGATIVE (NEGATIVE) 01/11/19 16:20 U Methamphetamines Scrn NEGATIVE (NEGATIVE) 01/11/19 16:20 U Benzodiazepines Scrn NEGATIVE (NEGATIVE) 01/11/19 16:20 Urine Cocaine Screen NEGATIVE (NEGATIVE) 01/11/19 16:20 U Cannabinoids Screen NEGATIVE (NEGATIVE) 01/11/19 16:20 Ethyl Alcohol 153.3 mg/dL 01/11/19 15:48
[2019-01-13 19:28] VITALS: BP 123/70
--- NOTE | 2019-01-14 01:25 | DISCHARGE SUMMARY ---
Discharge Summary Admit Date: 01/11/19 Discharge Date: 01/14/19 Discharging Provider: Akua Ramírez Code Status: Attempt Resuscitation Condition at Discharge: Stable Discharge Disposition: 65 Psych Hosp/Unit DC/Xfer Discharge Facility [facility]: [facility] - DIAGNOSES Admission Diagnoses: 1. Tylenol Overdose 2. Suicidal Ideation 3. Alcoholic Intoxication Discharge Diagnoses with Status of Each Condition: 1. Tylenol Overdose: Resolved 2. Suicidal Ideation: Ongoing. Voluntary Placement to Inpatient psych 3. Alcoholic Intoxication: Resolved - HPI History of Present Illness: Patient is a 23 y/o male who in the [employer] and presents after intentional ingestion of a significant/large unspecified amount of lexapro and tylenol with codeine. He is very evasive and would not shed light on the situation surrounding the incident or his presentation. As a result there is no good estimate of the time of ingestion or amount. In the ED he was found to have a tylenol level of 333 and 365 upon recheck a few hours later. He also had an alcohol level of 153. At bedside he is very nauseous and vomiting. He appears drowsy but can readily respond to questions. He denies chest pain, dyspnea, abdominal pain, fever or chills. He has very superficial cuts on his left for arm. He responds with "I don't remember" to any questions asked. He is being admitted for further treatment. On further investigation, it is reported by his commanding officer that her consumed a significant amount of alcohol at home, got drunk and got into an argument with his . Then he texted a friend that he had explosives in his house which were set up to go off. This triggered [employer] involvement. He was initially handcuffed and his phone was confiscated as part of investigation into the claim. He was subsequently brought to the ED where the work up resulted as above. It is reported that he had expressed suicidal ideation. - HOSPITAL COURSE Hospital Course: Patient was admitted, started on N-acetylcysteine via IV and placed on 1:1 observation. Tylenol level trended down from 333 to 365 to 39 to <10 by 06:00 am on 01/13/19. Thus he was medically cleared. He was seen by Social work and was willing to transfer to [facility] inpatient Psych - ALLERGIES Allergies/Adverse Reactions: Allergies Allergy/AdvReac Type Severity Reaction Status Date / Time No Known Drug Allergies Allergy Verified 01/11/19 15:38 - MEDICATIONS Home Medications: Ambulatory Orders Medication Instructions Recorded Confirmed Escitalopram Oxalate 10 mg PO DAILY 01/12/19 01/12/19 - PHYSICAL EXAM AT DISCHARGE General Appearance: positive: No acute distress, Alert Eyes Bilateral: positive: Normal inspection, PERRL, EOMI ENT: positive: ENT inspection nml, No signs of dehydration Neck: positive: Nml inspection, No JVD, Trachea midline Respiratory: positive: Chest non-tender, No respiratory distress, Breath sounds nml. negative: Wheezes, Rales, Rhonchi Cardiovascular: positive: Regular rate & rhythm Abdomen: positive: Non-tender, No organomegaly, Nml bowel sounds, No distention Back: positive: Nml inspection Skin: positive: Color nml, No rash, Warm, Dry Extremities: positive: Non-tender, Full ROM, Nml appearance Neurologic/Psychiatric: positive: Oriented x3, CN's nml (2-12), Motor nml, Sensation nml, Depressed mood/affect - LABS Result Diagrams: 01/13/19 06:17 01/13/19 06:17 - FOLLOW UP Follow Up: With PCP upon discharge from [facility] - TIME SPENT Time Spent in Discharge (Minutes): 31
--- NOTE | 2019-01-14 01:30 | Discharge Plan ---
Discharge Plan Problem Reviewed?: Yes Disposition: 65 Psych Hosp/Unit DC/Xfer Condition: Stable Diet: Regular Activity Restrictions: No Restrictions Shower Restrictions: No Driving Restrictions: No Weight Bearing: Full Weight Health Concerns: 1. Tylenol overdose: Resolved 2. Suicidal Ideation: On going Voluntary placement in inpatient psych. You will be transferred to [facility]. 3. Alcoholic intoxication: Resolved Plan of Treatment: 1. Tylenol overdose: Resolved 2. Suicidal Ideation: On going Voluntary placement in inpatient psych. You will be transferred to [facility]. 3. Alcoholic intoxication: Resolved Assessment: Above plan discussed with patient and he expresses understanding No Smoking: If you smoke, Please STOP! Call for help.
== END 2019-01-14 03:04 | DRG 918 ==
LOC: EDBD → EDUNIT# → ED 15:29 → EEVIPCON 19:36 → MS3 19:36
PROVIDERS: ADMIT Internal Medicine; ATTEND Internal Medicine
DX: T39.1X2A Poisoning by 4-Aminophenol derivatives, intentional self-harm, initial encounter (principal); T43.222A Poisoning by selective serotonin reuptake inhibitors, intentional self-harm, initial encounter; T51.0X2A Toxic effect of ethanol, intentional self-harm, initial encounter; S50.812A Abrasion of left forearm, initial encounter; X83.8XXA Intentional self-harm by other specified means, initial encounter; F10.920 Alcohol use, unspecified with intoxication, uncomplicated; Y90.6 Blood alcohol level of 120-199 mg/100 ml; R11.2 Nausea with vomiting, unspecified; Y92.009 Unspecified place in unspecified non-institutional (private) residence as the place of occurrence of the external cause; F32.9 Major depressive disorder, single episode, unspecified; Z79.899 Other long term (current) drug therapy; Z63.0 Problems in relationship with spouse or partner
CPT/HCPCS: 36415; 80048; 80053; 80076; 80306; 80307; 80320; 80329; 81001; 81003; 83690; 83735; 84443; 85025; 85610; 87086; 93005; 96365; 96366; 96372; 96375; 99284

== ENCOUNTER 2019-01-14 03:07 | Outpatient (CLI) | payer OTHER | END 2019-01-14 03:08 | LOC: EMS 03:07 | PROVIDERS: ATTEND Surgery | DX: R45.851 Suicidal ideations (principal); F32.9 Major depressive disorder, single episode, unspecified | CPT/HCPCS: A0425; A0428 ==

== ENCOUNTER 2019-07-31 13:19 | Outpatient (CLI) | payer OTHER ==
--- NOTE | 2019-08-01 08:30 | MRI Report ---
PROCEDURE: Brain W/O INDICATIONS: MEMORY AND EMOTIONAL CHANGES TECHNIQUE: Noncontrast axial T1 spin echo, axial T2 fast spin echo, sagittal and axial FLAIR, coronal T2 fast sp in echo, axial gradient echo, axial diffusion and ADC through the brain. COMPARISON: None. FINDINGS: Image quality: Excellent. CSF Spaces: Basal cisterns are patent. No extra-axial fluid collections. Ventricles are normal in size and shape. Brain: No intracranial masses or hemorrhage. [place]/white matter interface is normal. Brainstem appe ars normal. Diffusion-weighted images demonstrate no acute ischemic insult. There is a minimal degre e of scattered punctate high FLAIR signal foci within the bilateral aguirre radiata, which is indeterm inate. Normal intravascular flow voids are present. Skull and face: Calvarium has normal marrow signal. Orbits appear normal. Sinuses: Sinuses and mastoids are clear. IMPRESSION: 1. No acute process. 2. No recent infarct. 3. Minimal degree of nonspecific white matter disease. Differential considerations include migraines, vasculitides, demyelinating disorders, as well as small foci of remote insult/injury. Reviewed by: Kalyan Nixon MD on 08/01/2019 8:29 AM PDT Approved by: Kalyan Nixon MD on 08/01/2019 8:29 AM PDT Station ID: [id number]
== END 2019-07-31 13:20 | disposition home or self-care (01) ==
LOC: DI 13:19
PROVIDERS: ATTEND General Practice
DX: R41.3 Other amnesia (principal); F07.0 Personality change due to known physiological condition; S06.9X0S Unspecified intracranial injury without loss of consciousness, sequela; R90.82 White matter disease, unspecified
CPT/HCPCS: 70551